=== PATIENT | male | born 1960 | race Caucasian/White ===

== ENCOUNTER 2020-08-22 09:13 | Outpatient (CLI) | payer OTHER, SELFPAY ==
--- NOTE | ~2020-08-22 | XR_ITS ---
EXAMINATION: XR hip RT min 2V DATE: 08/22/2020 10:01 INDICATION: Low back pain TECHNIQUE: Two views of right hip were obtained. COMPARISON: 04/09/2015 FINDINGS: Bone alignment is normal. There is no fracture. There is unchanged mild osteoarthritis of t he hip. Phleboliths are noted in the pelvis. IMPRESSION: 1. Mild hip osteoarthritis, unchanged. Reviewed, dictated and finalized at location B.
--- NOTE | ~2020-08-22 | XR_ITS ---
EXAMINATION: XR lumbar spine 2-3V DATE: 08/22/2020 10:00 INDICATION: Chronic low back pain TECHNIQUE: Anteroposterior and lateral views of the lumbar spine, and cone-down lateral view of the l umbosacral junction were obtained. COMPARISON: 04/09/2015 FINDINGS: There is stable mild loss of intervertebral disc space height at L5-S1. The vertebral body heights and alignment are normal. There is no fracture. Severe facet osteoarthritis is again noted in the lower lumbar spine. There are phleboliths of the pelvis. The bowel gas pattern is normal. IMPRESSION: 1. Mild lumbar spondylosis without acute findings or significant interval change. Reviewed, dictated and finalized at location B. IMPRESSION: 1. Mild lumbar spondylosis without acute findings or significant interval kang feliciano
== END 2020-08-22 09:14 | disposition home or self-care (01) ==
PROVIDERS: PCP Nurse Practitioner Family; Visit Provider Nurse Practitioner Family
DX: M54.5 Low back pain (principal); M51.36 Other intervertebral disc degeneration, lumbar region; M47.27 Other spondylosis with radiculopathy, lumbosacral region; M16.11 Unilateral primary osteoarthritis, right hip; M47.816 Spondylosis without myelopathy or radiculopathy, lumbar region
CPT/HCPCS: 72100; 73502

== ENCOUNTER 2020-11-19 07:30 | Outpatient (RCR) | payer OTHER, SELFPAY ==
--- NOTE | 2020-09-10 15:56 | PTOPEVAL ---
Thank you for referring Benedicto Fletcher to [facility].? The patient is scheduled to be seen for therapy? 2x/week for 10 weeks. Please review, sign, date and return this plan of care GENI. I agree with and certify that the following plan of care is medically necessary. Referring Physician Date Attending Provider: Sosa Marsh, RECREATION ATTENDANT Referring Provider: Sosa Marsh, RECREATION ATTENDANT Physical Therapy Evaluation Diagnosis back pain and right hip pain Onset 15 yrs Additional Evaluation Detail L5-S1 hernia 2008, injections and PT with no change Subjective Information He reports limitations with Query Text:As Reported By Patient/ walking, sitting, and standing Family activities. He has difficulty sitting on the floor or a bed. He reports limitation with fruit and vegetable parer. c/o fatigue with driving. He is limited with lifting task. He has trouble sleeping due to numbness and cramping. He c/o right leg numbness. He does not perform a walking program Stretching consistent daily for trunk rotation, prone press-up. Diagnostic Tests X-Rays For This Problem Yes: OA Previous Treatments Previous Treatments For This Problem 2007 for back Pain Assessment Right Hip(s) Reported Pain Level 9 Pain Frequency Chronic,Continuous Lowest Pain Intensity 8 Greatest Pain Intensity 10 Pain Aggravating Factors ADL's,Bending,Exercise/ Activity,Lifting,Prolonged Position,Sitting,Walking, Weight Bearing/Standing Bilateral Lower Back Reported Pain Level 8 Pain Description Crushing,Numbness,Radiating, Tightness,Tingling Pain Radiation Right Leg Pain Frequency Chronic,Continuous Lowest Pain Intensity 7 Greatest Pain Intensity 8 Pain Aggravating Factors ADL's,Bending,Exercise/ Activity,Lifting,Prolonged Position,Sitting,Walking, Weight Bearing/Standing Pain Behaviors Anxious Cervical and Lumbar ROM Lumbar Flexion Active [place] Query Text:Hands to: Lateral Flexion distal thigh Query Text:Active Hands to: Lumbar Comments 75% lateral flex and rotation
--- NOTE | 2020-11-19 11:11 | PTOPEVAL ---
Thank you for referring Benedicto Fletcher to [facility].? Benedicto has received 20 therapy visits to address chronic back and leg pain. He demonstrates progress with tolerance with daily task, improved trunk and LE strength, improve tissue restrictions and improved functional mobility. He demonstrates indep with his HEP at this time. He has partially achieved his therapy goals. He has reached maximal potential with skilled therapy services at this time. Will plan to discharge Benedicto from skilled therapy services at this time. Please review, sign, date and return this discharge summary GENI. I agree with and certify that the following plan of care is medically necessary. Referring Physician Date Attending Provider: Sosa Marsh, DRENCHER Referring Provider: Sosa Marsh, DRENCHER Physical Therapy Discharge Note Diagnosis back pain and right hip pain Onset 15 yrs Additional Evaluation Detail L5-S1 hernia 2007, injections and PT with no change Subjective Information As a result of skilled therapy Query Text:As Reported By Patient/ services he is able to sit or Family stand for 1 hour. He is able to perform walking for longer distances. He reports his joint motion has improved with therapy. He remains limited with lifting to light objects only. He does feel his back and leg are moving better. He continues to feel the muscle tighten up with activities. He is tighten with sitting and his back muscle tighten with reaching. He is receiving only 2 hours of sleeping due to pain. He is performing his HEP 2x/ day. Pain Assessment Self Report Pain Assessment Left Knee(s) Reported Pain Level 6 Pain Description Cramping,Numbness,Spasms Pain Frequency Chronic Lowest Pain Intensity 5 Greatest Pain Intensity 7 Right Hip(s) Reported Pain Level 5 Pain Frequency Chronic,Continuous Lowest Pain Intensity 5 Greatest Pain Intensity 6 Bilateral Lower Back Reported Pain Level 6 Pain Description Crushing,Spasms Pain Frequency Chronic,Continuous Lowest Pain Intensity 5 Greatest Pain Intensity 8 Cervical and Lumbar ROM Lumbar ROM Lumbar Flexion Active [place] Query Text:Hands to: Lateral Flexion distal thigh Query Text:Active Hands to:
== END 2020-11-27 14:34 | disposition home or self-care (01) ==
LOC: ANHPT 07:30
PROVIDERS: PCP Nurse Practitioner Family; Referring Provider Nurse Practitioner Family; Visit Provider Nurse Practitioner Family
DX: M54.5 Low back pain (principal); M51.36 Other intervertebral disc degeneration, lumbar region; M47.27 Other spondylosis with radiculopathy, lumbosacral region
CPT/HCPCS: 97014; 97110; 97112; 97140; 97162; G0283

== ENCOUNTER 2020-12-20 10:21 | Outpatient (CLI) | payer OTHER, SELFPAY ==
--- NOTE | 2020-12-20 11:00 | NEURO_ITS ---
Impression: # Complains of left 4th and 5th finger numbness. # Left ulnar neuropathy across the elbow. # Normal needle/EMG exam. Nerve Conduction Studies Anti Sensory Summary Table Stim Site NR Peak (ms) P-T Amp (?V) Site1 Site2 Delta-P (ms) Dist (cm) Alexei (m/s) Left Median Anti Sensory (2-3nd Digit) Wrist 2.6 63.6 Wrist 2-3nd Digit 2.6 14.0 54 Wrist 2.7 63.2 Wrist 2-3nd Digit 2.6 14.0 54 Left Radial Anti Sensory (Base 1st Digit) Wrist 2.0 10.0 Wrist Base 1st Digit 2.0 0.0 Left Ulnar Anti Sensory (5th Digit) Wrist 2.3 50.4 Wrist 5th Digit 2.3 14.0 61 Motor Summary Table Stim Site NR Onset (ms) O-P Amp (mV) Site1 Site2 Delta-0 (ms) Dist (cm) Alexei (m/s) Left Median Motor (Abd Poll Brev) Wrist 2.9 3.7 Elbow Wrist 4.8 29.0 60 Elbow 7.7 2.9 Left Ulnar Motor (Abd Dig Minimi) Wrist 2.5 6.2 A Elbow Wrist 5.2 30.0 58 A Elbow 7.7 5.4 B Elbow Wrist 4.1 26.0 63 B Elbow 6.6 5.4 F Wave Studies NR F-Lat (ms) L-R F-Lat (ms) Left Median (Mrkrs) (Abd Poll Brev) 26.37 Left Ulnar (Mrkrs) (Abd Dig Min) 27.93 EMG Side Muscle Nerve Root Ins Act Fibs Amp Dur Recrt Comment Left 1stDorInt Ulnar C8-T1 Nml Nml Nml Nml Nml Left Ext Indicis Radial (Post Int) C7-8 Nml Nml Nml Nml Nml Left Ext Digitorum Radial (Post Int) C7-8 Nml Nml Nml Nml Nml Left BrachioRad Radial C5-6 Nml Nml Nml Nml Nml Left PronatorTeres Median C6-7 Nml Nml Nml Nml Nml Left Abd Poll Brev Median C8-T1 Nml Nml Nml Nml Nml Left ABD Dig Min Ulnar C8-T1 Nml Nml Nml Nml Nml MTDD
== END 2020-12-20 10:22 | disposition home or self-care (01) ==
LOC: ANHNEURO 10:26
PROVIDERS: PCP Nurse Practitioner Family; Visit Provider Nurse Practitioner Family
DX: G56.22 Lesion of ulnar nerve, left upper limb (principal)
CPT/HCPCS: 95886; 95909

== ENCOUNTER 2022-02-17 12:34 | Outpatient (CLI) | payer OTHER, SELFPAY ==
--- NOTE | ~2022-02-17 | MR_ITS ---
EXAMINATION: MR lumbar spine wo con DATE: 02/17/2022 13:17 INDICATION: Lumbar radiculopathy. Chronic low back pain. TECHNIQUE: Magnetic resonance imaging (MRI) of the lumbar spine was performed without intravenous con trast. Sequences included sagittal T2-weighted FSE, sagittal T2-weighted FS FSE, sagittal T1-weighted FSE, and axial T2-weighted FSE. COMPARISON: Lumbar spine MRI 09/15/2013 FINDINGS: Bone alignment is normal. Vertebral body heights are normal. There is mildly decreased disc height at L2-L3. The distal spinal cord signal intensity is normal. The conus medullaris is at L1. T here is a 7.2 cm cyst in right kidney. The following disc levels are specifically discussed: L1-L2: The disc does not extend beyond the endplate margin. There is moderate bilateral facet joint o steoarthritis. There is no neural foraminal stenosis. There is no central canal stenosis. L2-L3: The disc is bulging and has an annular fissure. There is moderate bilateral facet joint osteoa rthritis. There is mild bilateral neural foraminal stenosis. There is mild central canal stenosis. L3-L4: The disc is bulging. There is moderate bilateral facet joint osteoarthritis. There is mild liliana ateral neural foraminal stenosis. There is mild central canal stenosis. L4-L5: The disc is bulging and has an annular fissure. There is severe bilateral facet joint osteoart hritis. There is mild bilateral neural foraminal stenosis. There is mild central canal stenosis. L5-S1: There is a left central and foraminal zone extrusion. There is severe bilateral facet joint os teoarthritis. There is mild left neural foraminal stenosis. There is mild central canal stenosis. The re is moderate stenosis of left lateral recess. IMPRESSION: 1. Moderate stenosis of left lateral recess at L5-S1. Otherwise mild lumbar spondylosis. Findings sta ble from 09/15/2013. Reviewed, dictated and finalized at location A. IMPRESSION: 1. Moderate stenosis of left lateral recess at L5-S1. Otherwise mild lumbar spo ndylosis. Findings stable from 09/15/2013.
== END 2022-02-17 12:35 | disposition home or self-care (01) ==
PROVIDERS: PCP Nurse Practitioner Adult Health; Visit Provider Nurse Practitioner Family
DX: M47.27 Other spondylosis with radiculopathy, lumbosacral region (principal); M48.07 Spinal stenosis, lumbosacral region
CPT/HCPCS: 72148

== ENCOUNTER 2022-03-04 01:33 | Day surgery (SDC) | payer OTHER, SELFPAY ==
[2022-02-18 13:48] VITALS: BMI 34.7
[2022-03-04 08:57] VITALS: BP 122/76; PULSE 97; RESP 20; TEMP 36.9; O2SAT 96
[2022-03-04] MEDS: LACTATED RINGERS 1,000 ML 150 ML IV CONT (09:10)
--- NOTE | 2022-03-04 09:14 | WPDANESEPPF ---
Anes - Initial Pre Proc Eval Procedure: Operation Date: 03/04/22 10:15 Proposed Procedures p Esophagogastroduodenoscopy & Screening Colonoscopy - Jefry Dinh MD Date/Time: 03/04/22 09:14 Surgeon: Jefry Dinh MD Pre Op Diagnosis: bloating, N & V, neoplasm screening Patient Data Age: 61 Gender: M Height: 1.75 m Weight: 108.7 kg Last Vital Signs Temp 36.9 C 03/04/22 08:57 Pulse 97 03/04/22 08:57 Resp 20 03/04/22 08:57 BP 122/76 03/04/22 08:57 Pulse Ox 96 03/04/22 08:57 O2 Del Method Room Air 03/04/22 08:57 Allergies Allergy/AdvReac Type Severity Reaction Status Date / Time Penicillins Allergy Intermediate Hives Verified 03/04/22 08:56 Cephalosporins Allergy Mild RASH Verified 03/04/22 08:56 Home Medications Medication Instructions Recorded Confirmed Type amlodipine 10 mg tablet 10 mg PO DAILY 01/20/22 02/18/22 History ezetimibe 10 mg-rosuvastatin 10 mg 1 tablet PO DAILY 01/20/22 02/18/22 History tablet fenofibrate 160 mg tablet 160 mg PO DAILY 01/20/22 02/18/22 History lisinopril 20 1 tablet PO DAILY 01/20/22 02/18/22 History mg-hydrochlorothiazide 12.5 mg tablet ibuprofen 400 mg tablet 400 mg PO DAILY 01/23/22 02/18/22 History Patient hx anesthesia problems: none Family hx anesthesia problems: none Results Review: All pre-operative results and documents have been reviewed as part of the pre-operative evaluation. [facility]LY [facility] Past Medical History Medical History Bloating Chronic kidney disease Colon cancer screening GERD (gastroesophageal reflux disease) Hyperlipidemia Hypertension Osteoarthritis Regurgitation of food Surgical History Surgical History Hx of carpal tunnel repair Family History Family History Father Diabetes mellitus Heart disease Hypertension Kidney disease Cerebrovascular accident Malignant neoplasm of prostate Mother Diabetes mellitus Heart disease Hypertension Cerebrovascular accident Sibling Kidney disease Cerebrovascular accident Social History Social History Smoking status: Never smoker Alcohol intake: never Substance use: never Substance use type: does not use Living arrangements: alone Spiritual care concerns: No Anes - Eval Final PreProcedure Day of Procedure 03/04/22 09:14 Patient weight: obese Heart: regular rate and rhythm Lungs: clear to auscultation Airway: Mallampati scale class II Neurological: alert and oriented Last oral intake: >/= 8 hours ASA classification: III Emergent: no Anesthetic plan: proceed Anesthesia type and monitoring: general GIVS and standard monitoring Results Review: All pre-operative results and documents have been reviewed as part of the pre-operative evaluation. Informed Consent: The patient's anesthetic plan and its attendant risks and benefits were discussed with the patient/family/POA. Questions were solicited and answers provided to the satisfaction of the patient/family/POA.
--- NOTE | 2022-03-04 09:28 | PM.HPGS ---
History of Present Illness History of Present Illness Consent: Risks, benefits, and alternatives have been discussed and questions answered. Patient agrees to proceed with procedure. Chief complaint: bloating, N & V, neoplasm screening Narrative: Benedicto Fletcher is a 61 year old male here for egd and colonoscopy, had?regurgitating mostly after eating even liquids since October, sometimes without warning and emesis.?Also he is due to have another colonoscopy- last one 2010 Review of Systems Constitutional: Constitutional: Denies headache(s) and Denies weakness Eyes: Eyes: Denies blurry vision ENT: Reports Normal hearing present, Denies headache(s) and Denies neck pain Cardiovascular: Cardiovascular: Denies chest pain and Denies dyspnea Respiratory: Respiratory: Denies dyspnea Gastrointestinal: Gastrointestinal: Reports no additional gastrointestinal complaints Genitourinary: Genitourinary: Denies dysuria Musculoskeletal: Musculoskeletal: Denies neck pain Integumentary/Breasts: Skin/Breast: Denies dry skin Neurologic: Reports Normal hearing present, Denies headache(s) and Denies weakness Psychiatric: Psychiatric: Denies anxiety Endocrine: Endocrine: Denies change in body appearance Hematologic/Lymphatic: Hematologic/Lymphatic: Denies easy bleeding Allergic/Immunologic: Allergic/Immunologic: Denies urticaria PMFSH Past Medical History Medical History Bloating Chronic kidney disease Colon cancer screening GERD (gastroesophageal reflux disease) Hyperlipidemia Hypertension Osteoarthritis Regurgitation of food Surgical History Surgical History Hx of carpal tunnel repair Family History Family History Father Diabetes mellitus Heart disease Hypertension Kidney disease Cerebrovascular accident Malignant neoplasm of prostate Mother Diabetes mellitus Heart disease Hypertension Cerebrovascular accident Sibling Kidney disease Cerebrovascular accident Social History Social History Smoking status: Never smoker Alcohol intake: never Substance use: never Substance use type: does not use Living arrangements: alone Spiritual care concerns: No Meds Home Medications and Allergies Home Medications Medication Instructions Recorded Confirmed Type amlodipine 10 mg tablet 10 mg PO DAILY 01/20/22 02/18/22 History ezetimibe 10 mg-rosuvastatin 10 mg 1 tablet PO DAILY 01/20/22 02/18/22 History tablet fenofibrate 160 mg tablet 160 mg PO DAILY 01/20/22 02/18/22 History lisinopril 20 1 tablet PO DAILY 01/20/22 02/18/22 History mg-hydrochlorothiazide 12.5 mg tablet ibuprofen 400 mg tablet 400 mg PO DAILY 01/23/22 02/18/22 History Allergies Allergy/AdvReac Type Severity Reaction Status Date / Time Penicillins Allergy Intermediate Hives Verified 03/04/22 08:56 Cephalosporins Allergy Mild RASH Verified 03/04/22 08:56 Vital Signs Vital Signs - 24 hr 03/04/22 08:57 Temperature 98.4 F Pulse Rate 97 Respiratory Rate 20 Blood Pressure 122/76 Pulse Oximetry 96 Oxygen Delivery Room Air Exam Const: General: comfortable and no acute distress HENMT: Face/Nose/Sinus: Normal nares present Eyes: General: appearance normal, both eyes and all related structures Neck: Neck: no JVD Resp: Auscultation: clear to auscultation bilaterally Cardio: Rate: regular rate Rhythm: regular rhythm GI: Inspection: non-distended GI Palp: Yes Soft to palpation Skin: General skin exam: normal color Neuro: General: gait normal Speech: normal speech Extrem: General: normal to inspection Psych: Mental Status: mental status grossly normal Assessment and Plan Assessment and plan (1) Regurgitation of food: Code(s): R11.10 - Vomiting, unspecified
--- NOTE | 2022-03-04 09:47 | SUR.OPER ---
EGD end 941 COLONOSCOPY start 945
[2022-03-04 10:01] VITALS: BP 114/73; PULSE 88; RESP 20; O2SAT 96
[2022-03-04 10:11] VITALS: BP 125/79; PULSE 87; RESP 20; O2SAT 97
[2022-03-04 10:21] VITALS: BP 128/80; PULSE 84; RESP 20; O2SAT 95
== END 2022-03-04 10:35 | disposition home or self-care (01) ==
PROVIDERS: PCP Nurse Practitioner Adult Health; Visit Provider Internal Medicine Gastroenterology
PROC: 0DJ08ZZ Inspection of Upper Intestinal Tract, Via Natural or Artificial Opening Endoscopic (ICD-10-PCS; CPT 43235; principal; 2022-03-04 10:15)
DX: Z12.11 Encounter for screening for malignant neoplasm of colon (principal); D12.0 Benign neoplasm of cecum; K63.5 Polyp of colon; K64.8 Other hemorrhoids; K44.9 Diaphragmatic hernia without obstruction or gangrene; K22.2 Esophageal obstruction; K21.9 Gastro-esophageal reflux disease without esophagitis; I12.9 Hypertensive chronic kidney disease with stage 1 through stage 4 chronic kidney disease, or unspecified chronic kidney disease; N18.9 Chronic kidney disease, unspecified; E78.5 Hyperlipidemia, unspecified; E66.9 Obesity, unspecified; Z68.35 Body mass index [BMI] 35.0-35.9, adult
CPT/HCPCS: 45385; 43239; 88305; J2704; J7120